=== PATIENT | male | born 1990 ===

== ENCOUNTER 2023-11-27 20:42 | Emergency (ER) | payer OTHER ==
[2023-11-27 20:54] VITALS: TEMP 98.2
[2023-11-27 20:59] LABS: Basophils # (A) 0.1 k/uL (0-0.2); Basophils % (A) 1 %; Eosinophils # (A) 0.4 k/uL (0-0.7); Eosinophils % (A) 4 %; HCT 43.7 % (39.0-53.0); HGB 14.6 gm/dL (13.0-17.5); Lymphocytes # (A) 2.9 k/uL (1.0-4.8); Lymphocytes % (A) 28 %; MCH 30.2 pg (25.0-35.0); MCHC 33.3 g/dL (31.0-37.0); MCV 90.6 fL (80.0-100.0); Mean Platelet Volume 7.2; Monocytes # (A) 0.7 k/uL (0-1.0); Monocytes % (A) 7 %; Neutrophils % (A) 58 %; Platelet Count 282 k/uL (150-450); RBC 4.82 m/uL (4.30-5.90); RDW 13.2 % (11.5-15.5); WBC 10.3 k/uL (3.8-10.6)
[2023-11-27 21:07] LABS: ALT 41 U/L (4-49); AST 38 U/L (17-59); African American GFR (CKD) >90 (>60 ml/min/1.73 sqM); Albumin 4.6 g/dL (3.5-5.0); Alkaline Phosphatase 61 U/L (38-126); Anion Gap 6 mmol/L; Blood Urea Nitrogen 10 mg/dL (9-20); Calcium 9.9 mg/dL (8.4-10.2); Carbon Dioxide 28 mmol/L (22-30); Chloride 103 mmol/L (98-107); Glucose 104 mg/dL (74-99); Magnesium 1.7 mg/dL (1.6-2.3); Non-African American GFR(CKD) >90 (>60 ml/min/1.73 sqM); Potassium 4.3 mmol/L (3.5-5.1); Sodium 137 mmol/L (137-145); Total Bilirubin 0.4 mg/dL (0.2-1.3); Total Protein 7.6 g/dL (6.3-8.2)
[2023-11-27 21:08] LABS: INR 0.9 (<1.2); Partial Thromboplastin Time 25.6 sec (22.0-30.0); Prothrombin Time 10.5 sec (10.0-12.5)
--- NOTE | 2023-11-27 21:13 | ED ---
Chest Pain HPI - General Source: patient Mode of arrival: ambulatory Limitations: no limitations <Paola Duvall - Last Filed: 11/27/23 21:12> - General Source: RN notes reviewed, old records reviewed, Caregiver - History of Present Illness MD Complaint: chest pain, other (Abdominal pain and reflux) -: week(s) Pain Location: epigastric Severity: moderate Severity scale (1-10): 4 Quality: sharp Consistency: intermittent Improves With: nothing Worsens With: nothing Anginal Symptoms: nausea Other Symptoms: palpitations Treatments Prior to Arrival: none <Bennie Loya - Last Filed: 12/03/23 19:02> - General Chief Complaint: Chest Pain Stated Complaint: Chest Pain Time Seen by Provider: 11/27/23 21:13 - History of Present Illness Initial Comments: 33-year-old male presenting with chief complaint of chest pain for the last 2 weeks. Pressure-like sensation. No radiation of pain. States that he came in today "because it runs in the family". (Paola Duvall) This is a 33-year-old male to ER for 2 weeks of chest pain anterior abdominal chest pain with nausea no vomiting. Patient states this is reflux-like pain thinks he has esophageal reflux and heartburn (Bennie Loya) - Related Data Previous Rx's Medication Instructions Recorded Famotidine [Pepcid] 20 mg PO BID #60 tablet 11/27/23 Allergies Allergy/AdvReac Type Severity Reaction Status Date / Time Penicillins Allergy Unknown Verified 11/27/23 20:45 Childhood Review of Systems ROS Other: All systems not noted in ROS Statement are negative. <Paola Duvall - Last Filed: 11/27/23 21:12> ROS Other: All systems not noted in ROS Statement are negative. <Bennie Loya - Last Filed: 12/03/23 19:02> ROS Statement: Those systems with pertinent positive or pertinent negative responses have been documented in the HPI. Past Medical History Past Medical History: No Reported History History of Any Multi-Drug Resistant Organisms: None Reported Past Surgical History: No Surgical Hx Reported Past Psychological History: No Psychological Hx Reported Smoking Status: Never smoker Past Alcohol Use History: None Reported Past Drug Use History: None Reported <Paola Duvall - Last Filed: 11/27/23 21:12> General Exam Limitations: no limitations <Paola Duvall - Last Filed: 11/27/23 21:12> General appearance: alert, in no apparent distress, anxious Head exam: Present: atraumatic, normocephalic, normal inspection Eye exam: Present: normal appearance, PERRL, EOMI. Absent: scleral icterus, conjunctival injection, periorbital swelling ENT exam: Present: normal exam, mucous membranes moist Neck exam: Present: normal inspection. Absent: tenderness, meningismus, lymphadenopathy Respiratory exam: Present: normal lung sounds bilaterally. Absent: respiratory distress, wheezes, rales, rhonchi, stridor Cardiovascular Exam: Present: regular rate, normal rhythm, normal heart sounds. Absent: systolic murmur, diastolic murmur, rubs, gallop, clicks GI/Abdominal exam: Present: soft, normal bowel sounds. Absent: distended, tenderness, guarding, rebound, rigid Extremities exam: Present: normal inspection, full ROM, normal capillary refill. Absent: tenderness, pedal edema, joint swelling, calf tenderness Back exam: Present: normal inspection Neurological exam: Present: alert, oriented X3, CN II-XII intact Psychiatric exam: Present: normal affect, normal mood Skin exam: Present: warm, dry, intact, normal color. Absent: rash <Bennie Loya - Last Filed: 12/03/23 19:02> - General Exam Comments Initial Comments: Visual Physical Exam Vital signs reviewed General: Well-appearing, nontoxic, no acute distress. Head: Normocephalic, atraumatic Eyes: PERRLA, EOMI ENT: Airway patent Chest: Nonlabored breathing Skin: No visual rash, normal skin tone Neuro: Alert and oriented 3 Musculoskeletal: No gross abnormalities (Paola Duvall) Course <Bennie Loya - Last Filed: 12/03/23 19:02> Vital Signs 11/27/23 11/28/23 20:43 01:55 Temperature 98.2 F Pulse Rate 95 76 Respiratory 20 16 Rate Blood Pressure 159/94 132/99 O2 Sat by Pulse 100 98 Oximetry - Reevaluation(s) Reevaluation #1: 11/27/23 23:53 Medical records reviewed (Bennie Loya) Reevaluation #2: 11/27/23 23:53 Patient symptoms unchanged, improving (Bennie Loya) Reevaluation #3: 11/27/23 23:53 Patient informed of results questions answered Studies Chest x-ray and CTA chest are negative for acute disease (Bennie Loya) Reevaluation #4: Was pt. sent in by a medical professional or institution (, LEDY, EDUCATIONAL SIGN LANGUAGE INTERPRETER, urgent care, hospital, or fci...) When possible be specific @ -no Did you speak to anyone other than the patient for history (EMS, parent, family, police, friend...)? What history was obtained from this source @ -no Did you review nursing and triage notes (agree or disagree)? Why? @ -agree Are old charts reviewed (outside hosp., previous admission, EMS record, old EKG, old radiological studies, urgent care reports/EKG's, fci records)? Report findings @ -yes Differential Diagnosis (chest pain, altered mental status, abdominal pain women, abdominal pain men, vaginal bleeding, weakness, fever, dyspnea, syncope, h eadache, dizziness, GI bleed, back pain, seizure, CVA, palpatations, mental health, musculoskeletal)? @ -prior EKG interpreted by me (3pts min.). @ -yes X-rays interpreted by me (1pt min.). @ -yes negative for acute disease CT interpreted by me (1pt min.). @ -n yes yes negative for acute disease U/S interpreted by me (1pt. min.). @ -no What testing was considered but not performed or refused? (CT, X-rays, U/S, labs)? Why? @ -none What meds were considered but not given or refused? Why? @ -none Did you discuss the management of the patient with other professionals (professionals i.e. LEDY Tate, EDUCATIONAL SIGN LANGUAGE INTERPRETER, lab, RT, psych nurse, social insurance administrator, occupational therapy manager, teacher, security flex officer, case assistant)? Give summary @ -no Was smoking cessation discussed for >3mins.? @ -no Was critical care preformed (if so, how long)? @ -no Were there social determinants of health that impacted care today? How? (Homelessness, low income, unemployed, alcoholism, drug addiction, transportation, low edu. Level, literacy, decrease access to med. care, [facility], rehab)? @ -none Was there de-escalation of care discussed even if they declined (Discuss DNR or withdrawal of care, Hospice)? DNR status @ -no What co-morbidities impacted this encounter? (DM, HTN, Smoking, COPD, CAD, Cancer, CVA, ARF, Chemo, Hep., AIDS, mental health diagnosis, sleep apnea, morbid obesity)? @ -none Was patient admitted / discharged? Hospital course, mention meds given and route, prescriptions, significant lab abnormalities, going to OR and other pertinent info. @ - 33 male with nonspecific chest pain. Patient will be discharged home, feels like it is gastritis and reflux disease and patient feels improved Discharge Undiagnosed new problem with uncertain prognosis? @ -no Drug Therapy requiring intensive monitoring for toxicity (Heparin, Nitro, Insulin, Cardizem)? @ -no Were any procedures done? @ -no Diagnosis/symptom? @ -Chest pain gastritis Acute, or Chronic, or Acute on Chronic? @ -Acute Uncomplicated (without systemic symptoms) or Complicated (systemic symptoms)? @ -Complicated Side effects of treatment? @ -no Exacerbation, Progression, or Severe Exacerbation? @ -exacerbation Poses a threat to life or bodily function? How? (Chest pain, USA, CT, pneumonia, PE, COPD, DKA, ARF, appy, cholecystitis, CVA, Diverticulitis, Homicidal, Suicidal, threat to staff... and all critical care pts) @ -yes with chest pain (Bennie Loya) Reevaluation #5: Differential Chest Pain: Stable Angina, Unstable Angina, STEMI, NSTEMI Aortic Dissection, Pneumothorax, Musculoskeletal, Esophageal Spasm GERD, Cholecystitis, Pancreatitis, Zoster, this is not meant to be an all-inclusive list. (Bennie Loya) Chest Pain [facility] <Paola Duvall - Last Filed: 11/27/23 21:12> <Bennie Loya - Last Filed: 12/03/23 19:02> - [facility] I performed the quick note portion of this visit, electronically signed Paola Duvall PA-C (Paola Duvall) 33 male with nonspecific chest pain. Patient will be discharged home, feels like it is gastritis and reflux disease and patient feels improved (Bennie Loya) Disposition <Paola Duvall - Last Filed: 11/27/23 21:12> Is patient prescribed a controlled substance at d/c from ED?: No Time of Disposition: 23:50 <Bennie Loya - Last Filed: 12/03/23 19:02> Clinical Impression: Atypical chest pain, Chest pain, Gastroesophageal reflux disease Disposition: HOME SELF-CARE Condition: Good Instructions (If sedation given, give patient instructions): Chest Pain (ED), Gastritis (ED) Prescriptions: Famotidine [Pepcid] 20 mg PO BID #60 tablet Referrals: None,Stated [Primary Care Provider] - 1-2 days
--- NOTE | 2023-11-27 21:22 | XR ---
EXAMINATION: XR chest 2V: 11/27/2023 9:03 PM CLINICAL INDICATION: Chest Pain TECHNIQUE: PA and lateral views COMPARISON: None FINDINGS/IMPRESSION: There is a thin crescent of gas (arrow on both views) underneath the left hemidiaphragm on both the f rontal and lateral projections. There is a large rounded hyperdensity which appears to correlate with the gastric fundus (small arrowheads on the frontal view). Though the thin crescent of gas most like ly to represent atypical presentation of gastric air - would recommend exclusion of left pneumoperito neum with bilateral decubitus X-ray. The lungs are clear and the pleural spaces are negative. The cardiac silhouette is not enlarged. The skeletal structures are negative for acute findings.
--- NOTE | 2023-11-27 23:53 | XR ---
EXAM: XR Abdomen, 2 Views CLINICAL HISTORY: ITS.REASON XR Reason: r/o pneumoperitoneum TECHNIQUE: Frontal view of the abdomen/pelvis with upright view of the abdomen. COMPARISON: No relevant prior studies available. FINDINGS: Intraperitoneal space: Free air in the abdomen and outlines the RIGHT lateral border of the liver. The need for CT scan should be determined clinically. Gastrointestinal tract: Nonobstructed bowel gas pattern. Bones/joints: Unremarkable. No acute fracture. IMPRESSION: Free air in the abdomen outlines the RIGHT lateral border of the liver. The need for CT scan should be determined clinically. <MYCVCSECTION> Communications: 11/27/23 23:56 Verify Receipt Verified receipt with LORNA Vanegas giving report to Dr. Loya on 11/27 23:56 (-05:00)
[2023-11-28] MEDS: MAG HYDROX/AL HYDROX/SIMETH 30 ML, HYOSCYAMINE ELIXIR 10 ML, LIDOCAINE VISCOUS 2% 10 ML PO STA (00:08)
[2023-11-28] MEDS: SODIUM CHLORIDE 0.9% 1,000 ML IV STA (00:31)
[2023-11-28 02:00] VITALS: BP 132/99; PULSE 76; RESP 16
--- NOTE | 2023-11-28 02:00 | CT ---
EXAM: CT Abdomen and Pelvis With Intravenous Contrast CLINICAL HISTORY: ITS.REASON CT Reason: pain. Questionable pneumoperitoneum TECHNIQUE: Axial computed tomography images of the abdomen and pelvis with intravenous contrast. CTDI is 16.8 mGy and DLP is 831.1 mGy-cm. This CT exam was performed using one or more of the following dose reduction techniques: automated exposure control, adjustment of the mA and/or kV according to patient size, and/or use of iterative reconstruction technique. Coronal and sagittal reconstructions are performed. 448 images COMPARISON: Abdominal radiographs from yesterday. FINDINGS: Lung bases: Unremarkable. No mass. No consolidation. ABDOMEN: Liver: Unremarkable. No mass. Gallbladder and bile ducts: Unremarkable. No calcified stones. No ductal dilation. Pancreas: Unremarkable. No mass. No ductal dilation. Spleen: Unremarkable. No splenomegaly. Adrenals: Unremarkable. No mass. Kidneys and ureters: Unremarkable. No solid mass. No hydronephrosis. Stomach and bowel: Unremarkable. No obstruction. No mucosal thickening. PELVIS: Appendix: Normal appendix. Bladder: Unremarkable. No mass. Reproductive: Unremarkable as visualized. ABDOMEN and PELVIS: Intraperitoneal space: Unremarkable. No free air. No significant fluid collection. Bones/joints: Moderate thoracolumbar scoliosis convexed to the right. Soft tissues: Unremarkable. Vasculature: Unremarkable. No abdominal aortic aneurysm. Lymph nodes: Unremarkable. No enlarged lymph nodes. IMPRESSION: No acute findings in the abdomen or pelvis.
== END 2023-11-28 02:24 | disposition home or self-care (01) ==
LOC: EC 20:42
DX: R07.89 Other chest pain (principal); K21.9 Gastro-esophageal reflux disease without esophagitis; Z88.0 Allergy status to penicillin
CPT/HCPCS: 36415; 71046; 74021; 74177; 80053; 83735; 84484; 85025; 85610; 85730; 93005; 96360; 99285

== ENCOUNTER 2024-04-02 19:57 | Emergency (ER) | payer OTHER ==
[2024-04-02 20:02] VITALS: BP 154/115; PULSE 80; RESP 18; TEMP 98
--- NOTE | 2024-04-02 20:25 | ED ---
General Adult HPI - General Chief complaint: ENT Stated complaint: Poss food lodged in throat,Vomiting Time Seen by Provider: 04/02/24 20:04 Source: patient, RN notes reviewed, old records reviewed Mode of arrival: ambulatory Limitations: no limitations - History of Present Illness Initial comments: 33-year-old male presents with suspected food impaction in the esophagus. Patient was eating steak and acutely was unable to swallow. He had no difficulty breathing. He had several episodes of vomiting but was unable to vomit up any food. He has history of gastric reflux and does take daily medication. He has not had previous issues related to this. - Related Data Previous Rx's Medication Instructions Recorded Famotidine [Pepcid] 20 mg PO BID #60 tablet 11/27/23 Allergies Allergy/AdvReac Type Severity Reaction Status Date / Time Penicillins Allergy Unknown Verified 11/27/23 20:45 Childhood Review of Systems ROS Statement: Those systems with pertinent positive or pertinent negative responses have been documented in the HPI. ROS Other: All systems not noted in ROS Statement are negative. Past Medical History Past Medical History: No Reported History History of Any Multi-Drug Resistant Organisms: None Reported Past Surgical History: No Surgical Hx Reported Past Psychological History: No Psychological Hx Reported Smoking Status: Never smoker Past Alcohol Use History: None Reported Past Drug Use History: None Reported General Exam Limitations: no limitations General appearance: alert, in no apparent distress Head exam: Present: atraumatic, normocephalic Eye exam: Present: normal appearance, PERRL ENT exam: Present: normal oropharynx Neck exam: Present: normal inspection. Absent: tenderness, meningismus Respiratory exam: Present: normal lung sounds bilaterally. Absent: respiratory distress, wheezes, stridor Cardiovascular Exam: Present: regular rate, normal rhythm GI/Abdominal exam: Present: soft. Absent: distended, tenderness, guarding Neurological exam: Present: alert, oriented X3 Psychiatric exam: Present: anxious Skin exam: Present: diaphoretic Course Vital Signs 04/02/24 20:00 Temperature 98 F Pulse Rate 80 Respiratory 18 Rate Blood Pressure 154/115 O2 Sat by Pulse 98 Oximetry Medical Decision Making - Medical Decision Making Was pt. sent in by a medical professional or institution (, PA, CLINICAL INFORMATICS DIRECTOR, urgent care, hospital, or fci...) When possible be specific @ -No Did you speak to anyone other than the patient for history (EMS, parent, family, police, friend...)? What history was obtained from this source @ -No Did you review nursing and triage notes (agree or disagree)? Why? @ -I reviewed and agree with nursing and triage notes Were old charts reviewed (outside hosp., previous admission, EMS record, old EKG, old radiological studies, urgent care reports/EKG's, fci records)? Report findings @ -No old charts were reviewed Differential Diagnosis esophageal foreign body, impacted steak EKG interpreted by me (3pts min.). @ -As above X-rays interpreted by me (1pt min.). @ -None done CT interpreted by me (1pt min.). @ -None done U/S interpreted by me (1pt. min.). @ -None done What testing was considered but not performed or refused? (CT, X-rays, U/S, labs)? Why? @ -None What meds were considered but not given or refused? Why? @ -None Did you discuss the management of the patient with other professionals (professionals i.e. , PA, CLINICAL INFORMATICS DIRECTOR, lab, RT, psych nurse, social work administrator, merchandising specialist, teacher, senior administrative services officer, case management social worker)? Give summary @ -No Was smoking cessation discussed for >3mins.? @ -No Was critical care preformed (if so, how long)? @ -No Were there social determinants of health that impacted care today? How? (Homelessness, low income, unemployed, alcoholism, drug addiction, transportation, low edu. Level, literacy, decrease access to med. care, detention, rehab)? @ -No Was there de-escalation of care discussed even if they declined (Discuss DNR or withdrawal of care, Hospice)? DNR status @ -No What co-morbidities impacted this encounter? (DM, HTN, Smoking, COPD, CAD, Cancer, CVA, ARF, Chemo, Hep., AIDS, mental health diagnosis, sleep apnea, morbid obesity)? @ -[Gastric reflux Was patient admitted / discharged? Hospital course, mention meds given and route, prescriptions, significant lab abnormalities, going to OR and other pertinent info. @ -33-year-old male presenting for evaluation of suspected food impaction. Patient is acutely vomiting when attempting to drink anything. He takes small sips of carbonated beverage and ultimately is able to vomit up the steak bolus. He is able to drink after this. He will continue his proton pump inhibitor and follow with gastroenterology for further evaluation. He will be reevaluated by oncoming physician to ensure he is able to drink normally. Undiagnosed new problem with uncertain prognosis? @ -No Drug Therapy requiring intensive monitoring for toxicity (Heparin, Nitro, Insulin, Cardizem)? @ -No Were any procedures done? @ -No Diagnosis/symptom? @ -Esophageal food impaction Acute, or Chronic, or Acute on Chronic? @ -Default Uncomplicated (without systemic symptoms) or Complicated (systemic symptoms)? @ -Default Side effects of treatment? @ -No Exacerbation, Progression, or Severe Exacerbation? @ -No Poses a threat to life or bodily function? How? (Chest pain, [place], [place], pneumonia, PE, COPD, DKA, ARF, appy, cholecystitis, CVA, Diverticulitis, Homicidal, Suicidal, threat to staff... and all critical care pts) @ -No Disposition Clinical Impression: Esophageal obstruction due to food impaction Disposition: HOME SELF-CARE Condition: Good Instructions (If sedation given, give patient instructions): Esophageal Foreign Body (ED) Is patient prescribed a controlled substance at d/c from ED?: No Referrals: None,Stated [Primary Care Provider] - 1-2 days Monique Garner MD [STAFF PHYSICIAN] - 1-2 days
[2024-04-02] MEDS: KETOROLAC 15 MG/ML 1 ML VIAL IM STA (20:39)
[2024-04-02] MEDS: GLUCAGON 1 MG/ML VIAL IM STA (21:07)
[2024-04-02] MEDS: ONDANSETRON ODT 4 MG TAB PO STA (21:08)
[2024-04-02] MEDS: HYDROmorphone 0.5 MG/0.5 ML SYRINGE IM STA (21:13)
== END 2024-04-02 21:43 | disposition home or self-care (01) ==
LOC: EC 19:57
DX: K22.2 Esophageal obstruction (principal); Z88.0 Allergy status to penicillin
CPT/HCPCS: 99284; 96372 ×2; J1885; J1170

== ENCOUNTER 2024-11-02 01:43 | Observation (INO) | payer OTHER ==
[2024-11-02] MEDS: ACETAMINOPHEN TAB 500 MG TAB PO STA (02:20)
[2024-11-02] MEDS: IBUPROFEN 600 MG TAB PO STA (02:21)
[2024-11-02] MEDS: SODIUM CHLORIDE 0.9% 1,000 ML IV ONE ×2 (02:21→02:58)
[2024-11-02 02:38] LABS: Basophils # (A) 0.1 k/uL (0-0.2); Basophils % (A) 0 %; Eosinophils # (A) 0.3 k/uL (0-0.7); Eosinophils % (A) 1 %; HCT 40.1 % (39.0-53.0); Lymphocytes # (A) 1.1 k/uL (1.0-4.8); Lymphocytes % (A) 5 %; MCH 31.1 pg (25.0-35.0); Mean Platelet Volume 8.3; Monocytes # (A) 0.6 k/uL (0-1.0); Monocytes % (A) 3 %; Neutrophils # (A) 21.6 k/uL (1.3-7.7); Neutrophils % (A) 90 %; Platelet Count 317 k/uL (150-450); RDW 13.2 % (11.5-15.5); WBC 23.8 k/uL (3.8-10.6)
--- NOTE | 2024-11-02 02:49 | ED ---
General Adult HPI - General Chief complaint: Abdominal Pain Stated complaint: Left flank pain Time Seen by Provider: 11/02/24 01:58 Source: patient, RN notes reviewed Mode of arrival: EMS Limitations: no limitations - History of Present Illness Initial comments: 34-year old male presents to the emergency department for evaluation of left- sided rib pain. He states that it started yesterday morning when he woke up. He notes that nothing improves the pain. He does admit to coughing for "quite a while." He denies any known fever at home but is febrile in the ED. He denies any nausea, vomiting, urinary symptoms. Past medical history includes GERD. - Related Data Previous Rx's Medication Instructions Recorded Famotidine [Pepcid] 20 mg PO BID #60 tablet 11/27/23 Allergies Allergy/AdvReac Type Severity Reaction Status Date / Time Penicillins Allergy Unknown Verified 11/02/24 01:45 Childhood Review of Systems ROS Statement: Those systems with pertinent positive or pertinent negative responses have been documented in the HPI. ROS Other: All systems not noted in ROS Statement are negative. Past Medical History Past Medical History: No Reported History History of Any Multi-Drug Resistant Organisms: None Reported Past Surgical History: No Surgical Hx Reported Additional Past Surgical History / Comment(s): cyst Past Psychological History: No Psychological Hx Reported Smoking Status: Never smoker Past Alcohol Use History: None Reported Past Drug Use History: None Reported General Exam Limitations: no limitations General appearance: alert, in no apparent distress Head exam: Present: atraumatic, normocephalic, normal inspection Eye exam: Present: normal appearance, PERRL, EOMI. Absent: scleral icterus, conjunctival injection, periorbital swelling ENT exam: Present: normal exam, mucous membranes moist Neck exam: Present: normal inspection. Absent: tenderness, meningismus, lymphadenopathy Respiratory exam: Present: rhonchi. Absent: respiratory distress, wheezes, rales, stridor Cardiovascular Exam: Present: regular rate, normal rhythm, normal heart sounds. Absent: systolic murmur, diastolic murmur, rubs, gallop, clicks GI/Abdominal exam: Present: soft, normal bowel sounds. Absent: distended, tenderness, guarding, rebound, rigid Extremities exam: Present: normal inspection, full ROM, normal capillary refill. Absent: tenderness, pedal edema, joint swelling, calf tenderness Back exam: Present: normal inspection Neurological exam: Present: alert, oriented X3 Psychiatric exam: Present: normal affect, normal mood Skin exam: Present: warm, dry, intact, normal color. Absent: rash Course Vital Signs 11/02/24 11/02/24 01:45 03:01 Temperature 104.1 F H 99.9 F H Pulse Rate 124 H 104 H Respiratory 16 18 Rate Blood Pressure 136/98 134/67 O2 Sat by Pulse 99 99 Oximetry Medical Decision Making - Medical Decision Making Was pt. sent in by a medical professional or institution (, PA, BENZENE WORKER, urgent care, hospital, or assisted...) When possible be specific @ -No Did you speak to anyone other than the patient for history (EMS, parent, family, police, friend...)? What history was obtained from this source @ -No Did you review nursing and triage notes (agree or disagree)? Why? @ -I reviewed and agree with nursing and triage notes Were old charts reviewed (outside hosp., previous admission, EMS record, old EKG, old radiological studies, urgent care reports/EKG's, assisted records)? Report findings @ -No old charts were reviewed Differential Diagnosis (chest pain, altered mental status, abdominal pain women, abdominal pain men, vaginal bleeding, weakness, fever, dyspnea, syncope, headache, dizziness, GI bleed, back pain, seizure, CVA, palpatations, mental health, musculoskeletal)? @ -Differential Fever: Pneumonia, viral URI, endocarditis, myocarditis, pericarditis, otitis, sinusitis, peritonsillar Abscess, retropharyngeal Abscess, epiglottitis, peritonitis, appendicitis, Isabel cystitis, diverticulitis, hepatitis, colitis, UTI, PID, TOA, pyelonephritis, prostatitis, epididymitis, meningitis, encephalitis, pulmonary embolism, CVA, thyroid storm, pancreatitis, adrenal crisis, cavernous sinus thrombosis, this is not meant to be an all-inclusive list. EKG interpreted by me (3pts min.). @ -As above X-rays interpreted by me (1pt min.). @ -Chest x-ray shows left lower lobe infiltrate CT interpreted by me (1pt min.). @ -CT abdomen pelvis shows left lower lobe consolidation, no abdominal acute process U/S interpreted by me (1pt. min.). @ -None done What testing was considered but not performed or refused? (CT, X-rays, U/S, labs)? Why? @ -None What meds were considered but not given or refused? Why? @ -None Did you discuss the management of the patient with other professionals (professionals i.e. , PA, BENZENE WORKER, lab, RT, psych nurse, hospital social worker, english drawer, teacher, information management officer, pillowcase folder)? Give summary @ -Management discussed with [facility] by my attending, Dr. Sal Was smoking cessation discussed for >3mins.? @ -No Was critical care preformed (if so, how long)? @ -No Were there social determinants of health that impacted care today? How? (Homelessness, low income, unemployed, alcoholism, drug addiction, transportat ion, low edu. Level, literacy, decrease access to med. care, intermediate, rehab)? @ -No Was there de-escalation of care discussed even if they declined (Discuss DNR or withdrawal of care, Hospice)? DNR status @ -No What co-morbidities impacted this encounter? (DM, HTN, Smoking, COPD, CAD, Cancer, CVA, ARF, Chemo, Hep., AIDS, mental health diagnosis, sleep apnea, morbid obesity)? @ -None Was patient admitted / discharged? Hospital course, mention meds given and route, prescriptions, significant lab abnormalities, going to OR and other pertinent info. @ -Admitted. Patient presented to emergency department for evaluation of left- sided chest wall pain. Patient found to be febrile and tachycardic upon initial evaluation. Patient was provided Tylenol and Motrin in the ED. He also received 2 L of normal saline. Laboratory studies were obtained significant for leukocytosis at 23.8; CMP shows sodium 134 potassium 4.1, lipase of 1029. Patient was negative for COVID, influenza, RSV. Chest x-ray was obtained and a CT abdomen pelvis was also obtained. Upon review of these studies, findings s uspicious for a left lower lobe consolidation. Source of sepsis identified at 0330 and Rocephin and azithromycin were ordered. Patient was started on maintenance fluids. He is being admitted to the hospital for IV antibiotic treatment of pneumonia. He is understanding and agreeable with this plan. Patient stable at time of discharge. Case discussed with Dr. Sal. Undiagnosed new problem with uncertain prognosis? @ -No Drug Therapy requiring intensive monitoring for toxicity (Heparin, Nitro, Insulin, Cardizem)? @ -No Were any procedures done? @ -No Diagnosis/symptom? @ -Pneumonia Acute, or Chronic, or Acute on Chronic? @ -Acute Uncomplicated (without systemic symptoms) or Complicated (systemic symptoms)? @ -Complicated Side effects of treatment? @ -No Exacerbation, Progression, or Severe Exacerbation? @ -No Poses a threat to life or bodily function? How? (Chest pain, [place], [place], pneumonia, PE, COPD, DKA, ARF, appy, cholecystitis, CVA, Diverticulitis, Homicidal, Suicidal, threat to staff... and all critical care pts) @ -Pneumonia - Lab Data Result diagrams: 11/02/24 02:18 11/02/24 02:18 Lab Results 11/02/24 11/02/24 11/02/24 Range/Units 02:18 02:18 02:18 WBC 23.8 H (3.8-10.6) k/uL RBC 4.50 (4.30-5.90) m/uL Hgb 14.0 (13.0-17.5) gm/dL Hct 40.1 (39.0-53.0) % MCV 89.0 (80.0-100.0) fL MCH 31.1 (25.0-35.0) pg MCHC 35.0 (31.0-37.0) g/dL RDW 13.2 (11.5-15.5) % Plt Count 317 (150-450) k/uL MPV 8.3 Neutrophils % 90 % Lymphocytes % 5 % Monocytes % 3 % Eosinophils % 1 % Basophils % 0 % Neutrophils # 21.6 H (1.3-7.7) k/uL Lymphocytes # 1.1 (1.0-4.8) k/uL Monocytes # 0.6 (0-1.0) k/uL Eosinophils # 0.3 (0-0.7) k/uL Basophils # 0.1 (0-0.2) k/uL Sodium 134 L (137-145) mmol/L Potassium 4.1 (3.5-5.1) mmol/L Chloride 99 (98-107) mmol/L Carbon Dioxide 23 (22-30) mmol/L Anion Gap 12 mmol/L BUN 9 (9-20) mg/dL Creatinine 0.77 (0.66-1.25) mg/dL Est GFR (CKD-EPI)AfAm >90 (>60 ml/min/1.73 sqM) Est GFR (CKD-EPI)NonAf >90 (>60 ml/min/1.73 sqM) Glucose 124 H (74-99) mg/dL Plasma Lactic Acid Benjie 1.7 (0.7-2.0) mmol/L Calcium 9.6 (8.4-10.2) mg/dL Total Bilirubin 0.5 (0.2-1.3) mg/dL AST 18 (17-59) U/L ALT 23 (4-49) U/L Alkaline Phosphatase 69 (38-126) U/L Total Protein 7.3 (6.3-8.2) g/dL Albumin 4.3 (3.5-5.0) g/dL Lipase (23-300) U/L Influenza Type A (PCR) (Not Detectd) Influenza Type B (PCR) (Not Detectd) RSV (PCR) (Not Detectd) SARS-CoV-2 (PCR) (Not Detectd) 11/02/24 11/02/24 Range/Units 02:18 02:55 WBC (3.8-10.6) k/uL RBC (4.30-5.90) m/uL Hgb (13.0-17.5) gm/dL Hct (39.0-53.0) % MCV (80.0-100.0) fL MCH (25.0-35.0) pg MCHC (31.0-37.0) g/dL RDW (11.5-15.5) % Plt Count (150-450) k/uL MPV Neutrophils % % Lymphocytes % % Monocytes % % Eosinophils % % Basophils % % Neutrophils # (1.3-7.7) k/uL Lymphocytes # (1.0-4.8) k/uL Monocytes # (0-1.0) k/uL Eosinophils # (0-0.7) k/uL Basophils # (0-0.2) k/uL Sodium (137-145) mmol/L Potassium (3.5-5.1) mmol/L Chloride (98-107) mmol/L Carbon Dioxide (22-30) mmol/L Anion Gap mmol/L BUN (9-20) mg/dL Creatinine (0.66-1.25) mg/dL Est GFR (CKD-EPI)AfAm (>60 ml/min/1.73 sqM) Est GFR (CKD-EPI)NonAf (>60 ml/min/1.73 sqM) Glucose (74-99) mg/dL Plasma Lactic Acid Benjie (0.7-2.0) mmol/L Calcium (8.4-10.2) mg/dL Total Bilirubin (0.2-1.3) mg/dL AST (17-59) U/L ALT (4-49) U/L Alkaline Phosphatase (38-126) U/L Total Protein (6.3-8.2) g/dL Albumin (3.5-5.0) g/dL Lipase 1029 H (23-300) U/L Influenza Type A (PCR) Not Detected (Not Detectd) Influenza Type B (PCR) Not Detected (Not Detectd) RSV (PCR) Not Detected (Not Detectd) SARS-CoV-2 (PCR) Not Detected (Not Detectd) Disposition Clinical Impression: Pneumonia, Sepsis Disposition: [facility] Condition: Stable Is patient prescribed a controlled substance at d/c from ED?: No Referrals: Robbie Jensen [Primary Care Provider] - 1-2 days
[2024-11-02 02:55] LABS: ALT 23 U/L (4-49); AST 18 U/L (17-59); African American GFR (CKD) >90 (>60 ml/min/1.73 sqM); Albumin 4.3 g/dL (3.5-5.0); Alkaline Phosphatase 69 U/L (38-126); Anion Gap 12 mmol/L; Blood Urea Nitrogen 9 mg/dL (9-20); Calcium 9.6 mg/dL (8.4-10.2); Carbon Dioxide 23 mmol/L (22-30); Chloride 99 mmol/L (98-107); Glucose 124 mg/dL (74-99); Non-African American GFR(CKD) >90 (>60 ml/min/1.73 sqM); Potassium 4.1 mmol/L (3.5-5.1); Sodium 134 mmol/L (137-145); Total Bilirubin 0.5 mg/dL (0.2-1.3); Total Protein 7.3 g/dL (6.3-8.2)
[2024-11-02 03:19] LABS: Influenza A Not Detected (Not Detectd); Influenza B Not Detected (Not Detectd); RSV Not Detected (Not Detectd)
[2024-11-02] MEDS ORDERED: PNEUMONIA PROTOCOL UTILIZED 1 EACH MISC PO PRN (03:40)
--- NOTE | 2024-11-02 03:48 | XR ---
EXAM: XR Chest, 2 Views CLINICAL HISTORY: left lateral pain, cough TECHNIQUE: Frontal and lateral views of the chest. COMPARISON: 11/27/23 FINDINGS: Lungs: Unremarkable. No consolidation. Pleural space: Unremarkable. Mediastinum: Unremarkable. Normal mediastinal contour. Bones/joints: No acute findings. No rib fracture IMPRESSION: No acute findings.
[2024-11-02] MEDS ORDERED: HYDROmorphone 0.5 MG/0.5 ML SYRINGE IVP PRN (03:59)
--- NOTE | 2024-11-02 04:00 | CT ---
EXAM: CT Abdomen and Pelvis With Intravenous Contrast CLINICAL HISTORY: left sided pain TECHNIQUE: Axial computed tomography images of the abdomen and pelvis with intravenous contrast. CTDI is 13.9 mGy and DLP is 688 mGy-cm. This CT exam was performed using one or more of the following dose reduction techniques: automated exposure control, adjustment of the mA and/or kV according to patient size, and/or use of iterative reconstruction technique. Coronal and sagittal reconstructions are performed. 669 images COMPARISON: 11/28/2023. FINDINGS: Lung bases: Small peripheral consolidation of left lower lobe indicate pneumonia. ABDOMEN: Liver: Unremarkable. No mass. Gallbladder and bile ducts: Unremarkable. No calcified stones. No ductal dilation. Pancreas: Unremarkable. No mass. No ductal dilation. Spleen: Unremarkable. No splenomegaly. Adrenals: Unremarkable. No mass. Kidneys and ureters: Unremarkable. No solid mass. No hydronephrosis. Stomach and bowel: Unremarkable. No obstruction. No mucosal thickening. PELVIS: Appendix: Normal appendix. Bladder: Unremarkable. No mass. Reproductive: Unremarkable as visualized. ABDOMEN and PELVIS: Intraperitoneal space: Unremarkable. No free air. No significant fluid collection. Bones/joints: Moderate upper lumbar scoliosis convexed to the right. Soft tissues: Unremarkable. Vasculature: Unremarkable. No abdominal aortic aneurysm. Lymph nodes: Unremarkable. No enlarged lymph nodes. IMPRESSION: 1. Small peripheral consolidation of left lower lobe indicate pneumonia. Follow-up to resolution is recommended to rule out potential underlying neoplastic etiologies. 2. No acute findings in the abdomen or pelvis.
[2024-11-02] MEDS: AZITHROMYCIN 500 MG in SODIUM CHLORIDE 0.9% 250 ML IVPB STA (04:41)
[2024-11-02 04:56] LABS: Appearance,Urine Clear (Clear); Bilirubin,Urine Negative (Negative); Blood,Urine Negative (Negative); Color,Urine Colorless; Glucose,Urine (UA) Negative (Negative); Ketones,Urine Negative (Negative); Leukocyte Esterase,Urine Negative (Negative); Nitrite,Urine Negative (Negative); Protein,Urine Negative (Negative); Specific Gravity,Urine 1.011 (1.001-1.035); Urobilinogen,Urine <2.0 mg/dL (<2.0)
[2024-11-02 10:57] LABS: C Reactive Protein 4.9 mg/dL (<1.0)
--- NOTE | 2024-11-02 13:21 | P.HPIM ---
History of Present Illness H&P Date: 11/02/24 History of present illness; patient is a 34-year-old gentleman who came to the ER because of left-sided chest pain. Patient stated that he was all right yesterday when he started noticing left-sided chest pain which was sharp, nonradiating, associate with shortness of breath, no aggravating or relieving factors associated with this chest pain. Patient was complaining of cough for the last few days. Patient any fevers at home. There is no complaint of rigors or chills. Patient denies any nausea or vomiting. There was no clear orthopnea or PND. Because of this chest pain, patient came to the ER Initial lab work done in the ER showed WBC 23.8, hemoglobin 14, platelet 317, sodium 134, potassium 4.1, BUN 9, creatinine 0.77, glucose 124, lipase 1029 UA negative for infection Influenza A not detected Influenza B not detected RSV not detected COVID-19 not detected Chest x-ray done in the ER showed no acute findings CT abdominal pelvis done showed consolidation of left lower lobe indicative of pneumonia Patient admitted to internal medicine service REVIEW OF SYSTEMS: CONSTITUTIONAL: No fever, no malaise, no fatigue. HEENT: No recent visual problems or hearing problems. Denied any sore throat. CARDIOVASCULAR: As mentioned above PULMONARY: As mentioned above GASTROINTESTINAL: No diarrhea, no nausea, no vomiting, no abdominal pain. NEUROLOGICAL: No headaches, no weakness, no numbness. HEMATOLOGICAL: Denies any bleeding or petechiae. GENITOURINARY: Denies any burning micturition, frequency, or urgency. MUSCULOSKELETAL/RHEUMATOLOGICAL: Denies any joint pain, swelling, or any muscle pain. ENDOCRINE: Denies any polyuria or polydipsia. The rest of the 14-point review of systems is negative. PHYSICAL EXAMINATION: GENERAL: The patient is alert and oriented x3, not in any acute distress. Well developed, well nourished. HEENT: Pupils are round and equally reacting to light. EOMI. No scleral icterus. No conjunctival pallor. Normocephalic, atraumatic. No pharyngeal erythema. No thyromegaly. CARDIOVASCULAR: S1 and S2 present. No murmurs, rubs, or gallops. PULMONARY: Diminished breath sounds at left lung base , no wheezing or crackles. ABDOMEN: Soft, nontender, nondistended, normoactive bowel sounds. No palpable organomegaly. MUSCULOSKELETAL: No joint swelling or deformity. EXTREMITIES: No cyanosis, clubbing, or pedal edema. NEUROLOGICAL: Gross neurological examination did not reveal any focal deficits. SKIN: No rashes. Assessment and plan Sepsis Bacterial pneumonia Left-sided chest pain GERD Monitor vital signs Monitor CBC Monitor CMP Continue telemetry monitoring Ordered blood cultures Ordered sputum culture Ordered Legionella antigen Ordered CRP, ESR, Pro-Bear Ordered IV Rocephin azithromycin Ordered IV fluids Ordered antipyretics Consult ID Labs and medication were reviewed.. Continue same treatment. Continue with symptomatic treatment. Resume home medication. Monitor labs and vitals. DVT and GI prophylaxis. Further recommendations as per clinical course of the patient Dictation was produced using [employer] dictation software. please excuse any grammatical, word or spelling errors. Past Medical History Past Medical History: No Reported History History of Any Multi-Drug Resistant Organisms: None Reported Past Surgical History: No Surgical Hx Reported Additional Past Surgical History / Comment(s): cyst Past Psychological History: No Psychological Hx Reported Smoking Status: Former smoker Past Alcohol Use History: None Reported Past Drug Use History: None Reported Medications and Allergies Home Medications Medication Instructions Recorded Confirmed Type Omeprazole 20 mg PO DAILY 11/02/24 11/02/24 History Allergies Allergy/AdvReac Type Severity Reaction Status Date / Time Penicillins Allergy Anaphylaxis Verified 11/02/24 12:31 Physical Exam Vitals: Vital Signs Temp Pulse Pulse Resp BP BP Pulse Ox 11/02/24 07:58 97.9 F 74 18 107/67 97 11/02/24 06:14 85 18 107/67 96 11/02/24 04:02 99 18 114/76 97 11/02/24 03:01 99.9 F H 104 H 18 134/67 99 11/02/24 01:45 104.1 F H 124 H 16 136/98 99 Intake and Output 11/01/24 11/02/24 11/02/24 22:59 06:59 14:59 Other: Weight 68.039 kg 68.039 kg Results CBC & Chem 7: 11/02/24 02:18 11/02/24 02:18 Labs: Abnormal Lab Results - Last 24 Hours (Table) 11/02/24 11/02/24 11/02/24 Range/Units 02:18 02:18 02:55 WBC 23.8 H (3.8-10.6) k/uL Neutrophils # 21.6 H (1.3-7.7) k/uL Sodium 134 L (137-145) mmol/L Glucose 124 H (74-99) mg/dL Lipase 1029 H (23-300) U/L Thrombosis Risk Factor Assmnt - Choose All That Apply Any of the Below Risk Factors Present?: No Other Risk Factors: No Thrombosis Risk Factor Assessment Level: Very Low Risk
[2024-11-02] MEDS: ACETAMINOPHEN TAB 325 MG TAB PO PRN (13:41)
[2024-11-02] MEDS: PANTOPRAZOLE 40 MG TABLET PO SCH (18:01)
[2024-11-02] MEDS: KETOROLAC 15 MG/ML 1 ML VIAL IVP PRN (18:48)
--- NOTE | 2024-11-03 07:23 | XR ---
Chest, 2 view. HISTORY: Cough. COMPARISON: TECHNIQUE: PA and lateral views the chest are obtained. FINDINGS: There is no airspace consolidation. There is mild stable interstitial opacity in the left lung base reflecting mild interstitial scarring or fibrosis. There is no pleural effusion or pneumothorax. The heart, pulmonary vasculature, mediastinum and denise appear normal. The osseous structures are intact. IMPRESSION: 1. No acute cardiopulmonary disease and no interval change 2. mild chronic interstitial changes in the left lung base [facility], , 11/03/2024 7:20 AM
[2024-11-03] MEDS: AZITHROMYCIN 500 MG TAB PO SCH (08:46)
--- NOTE | 2024-11-03 08:58 | P.CONS ---
History of Present Illness - Reason for Consult Consult date: 11/02/24 Sepsis, pneumonia Requesting physician: Adam Mosqueda - Chief Complaint Left-sided chest pain and cough x days - History of Present Illness Patient is a 34-year-old male with no significant past medical history presenting to the hospital for evaluation of left-sided chest pain patient said he woke up in the morning with the pain pain is mostly sharp moderate to severe intensity and worse with taking a deep breath patient also has been coughing a lot over the last few days and is bringing up some yellow sputum no hemoptysis patient denies having any headache or URI symptoms no nausea vomiting no abdominal pain or diarrhea on presentation to the hospital he did have a temperature of 104.1 F patient was not tachycardic hypotensive or hypoxic and no need for supplemental oxygen. Patient did have a white count of 23.8 with a left shift creatinine 0.77 electrolytes are normal liver isms are normal UA has been negative influenza RSV COVID testing was negative blood and sputum culture currently pending patient did have a chest x-ray which did shows no acute findings subsequently did have a CT of abdominal pelvis left lower lobe consolidation suggestive of pneumonia no acute findings in abdominal pelvis patient was started on Rocephin and Zithromax infectious disease was consulted for further management of antibiotic therapy Review of Systems Positive point and negatives has been mentioned in the HPI, complete review of systems was performed and all other systems are negative Past Medical History Past Medical History: No Reported History History of Any Multi-Drug Resistant Organisms: None Reported Past Surgical History: No Surgical Hx Reported Additional Past Surgical History / Comment(s): cyst Past Psychological History: No Psychological Hx Reported Smoking Status: Former smoker Past Alcohol Use History: None Reported Past Drug Use History: None Reported Medications and Allergies Home Medications Medication Instructions Recorded Confirmed Type Omeprazole 20 mg PO DAILY 11/02/24 11/02/24 History Allergies Allergy/AdvReac Type Severity Reaction Status Date / Time Penicillins Allergy Anaphylaxis Verified 11/02/24 12:31 Physical Exam Vitals: Vital Signs Temp Pulse Pulse Resp BP BP Pulse Ox 11/02/24 07:58 97.9 F 74 18 107/67 97 11/02/24 06:14 85 18 107/67 96 11/02/24 04:02 99 18 114/76 97 11/02/24 03:01 99.9 F H 104 H 18 134/67 99 11/02/24 01:45 104.1 F H 124 H 16 136/98 99 Intake and Output 11/01/24 11/02/24 11/02/24 22:59 06:59 14:59 Other: Weight 68.039 kg 68.039 kg GENERAL DESCRIPTION: Middle-aged male lying in bed, no distress. No tachypnea or accessory muscle of respiration use. HEENT: Shows Pallor , no scleral icterus. Oral mucous membrane is dry. NECK: Trachea central, no thyromegaly. LUNGS: Unlabored breathing. Decreased breath sound at the left base HEART: S1, S2, regular rate and rhythm. No loud murmur ABDOMEN: Soft, no tenderness , EXTREMITIES: No edema of feet. SKIN: No rash, no masses palpable. NEUROLOGICAL: The patient is awake, alert, oriented x3, mood and affect normal. Results CBC & Chem 7: 11/02/24 02:18 11/02/24 02:18 Labs: Abnormal Lab Results - Last 24 Hours (Table) 11/02/24 11/02/24 11/02/24 Range/Units 02:18 02:18 02:55 WBC 23.8 H (3.8-10.6) k/uL Neutrophils # 21.6 H (1.3-7.7) k/uL Sodium 134 L (137-145) mmol/L Glucose 124 H (74-99) mg/dL C-Reactive Protein (<1.0) mg/dL Lipase 1029 H (23-300) U/L 11/02/24 Range/Units 10:32 WBC (3.8-10.6) k/uL Neutrophils # (1.3-7.7) k/uL Sodium (137-145) mmol/L Glucose (74-99) mg/dL C-Reactive Protein 4.9 H (<1.0) mg/dL Lipase (23-300) U/L Assessment and Plan (1) Penicillin allergy Current Visit: Yes Status: Acute Code(s): Z88.0 - ALLERGY STATUS TO PENICILLIN SNOMED Code(s): 67923140 (2) Pneumonia Current Visit: Yes Status: Acute Code(s): J18.9 - PNEUMONIA, UNSPECIFIED ORGANISM SNOMED Code(s): 431718787 (3) Sepsis Current Visit: Yes Status: Acute Code(s): A41.9 - SEPSIS, UNSPECIFIED ORGANISM SNOMED Code(s): 03455233 Plan: 1patient present to hospital with sepsis in this patient did have fever elevated white count meeting currently for SIRS source is left lower lobe pneumonia likely community-acquired patient did have a D-dimer of less than 0.17 2patient with a penicillin allergy that would limit the number of antibiotics safe to use 3leukocytosis likely due to the left lower lobe pneumonia 4blood and sputum culture have been obtained results will be followed 5Rocephin and Zithromax will provide adequate empiric coverage while waiting for the culture to finalize We will follow on clinical condition and cultures to further adjust medication if needed Thank you for this consultation we will follow the patient along with you Dictation was produced using [employer] dictation software. please excuse any grammatical, word or spelling errors. Time with Patient: Greater than 30
[2024-11-03 09:40] LABS: HCT 35.4 % (39.6-50.0); HGB 12.2 g/dL (13.0-17.0); MCHC 34.5 g/dL (32.0-37.0); MCV 90.1 FL (80.0-97.0); Mean Platelet Volume 10.6 FL (9.5-12.2); NRBC Per 100 WBC 0 X 10*3/uL (0.00-0.01); Platelet Count 240 X 10*3/uL (140-440); RBC 3.93 X 10*6/uL (4.40-5.60); RDW 13.2 % (11.5-14.5); WBC 6.38 X 10*3/uL (4.50-10.00)
[2024-11-03 09:41] LABS: Basophils # (A) 0.05 X 10*3/uL (0.00-0.10); Basophils % (A) 0.8 %; Eosinophils # (A) 0 X 10*3/uL (0.04-0.35); Eosinophils % (A) 0 %; Lymphocytes # (A) 1.51 X 10*3/uL (0.90-5.00); Lymphocytes % (A) 23.7 %; Monocytes # (A) 0.63 X 10*3/uL (0.20-1.00); Monocytes % (A) 9.9 %; Neutrophils # (A) 4.17 X 10*3/uL (1.80-7.70); Neutrophils % (A) 65.3 %
[2024-11-03 09:47] LABS: ALT 17 U/L (10-49); AST 11 U/L (14-35); Albumin 3.7 g/dL (3.8-4.9); Albumin/Globulin Ratio 1.76 Ratio (1.60-3.17); Alkaline Phosphatase 62 U/L (41-126); BUN/Creat Ratio 10.88 Ratio (12.00-20.00); Blood Urea Nitrogen 8.7 mg/dL (9.0-27.0); Calcium 8.7 mg/dL (8.7-10.3); Carbon Dioxide 24.7 mmol/L (21.6-31.8); Chloride 108 mmol/L (96-109); Globulin 2.1 g/dL (1.6-3.3); Glucose 96 mg/dL (70-110); Potassium 4.2 mmol/L (3.5-5.5); Sodium 140 mmol/L (135-145); Total Bilirubin 0.3 mg/dL (0.3-1.2); Total Protein 5.8 g/dL (6.2-8.2)
--- NOTE | 2024-11-03 14:25 | P.PN ---
Subjective Progress Note Date: 11/03/24 patient is a 34-year-old gentleman who came to the ER because of left-sided chest pain. Patient stated that he was all right yesterday when he started noticing left-sided chest pain which was sharp, nonradiating, associate with shortness of breath, no aggravating or relieving factors associated with this chest pain. Patient was complaining of cough for the last few days. Patient any fevers at home. There is no complaint of rigors or chills. Patient denies any nausea or vomiting. There was no clear orthopnea or PND. Because of this chest pain, patient came to the ER Initial lab work done in the ER showed WBC 23.8, hemoglobin 14, platelet 317, sodium 134, potassium 4.1, BUN 9, creatinine 0.77, glucose 124, lipase 1029 UA negative for infection Influenza A not detected Influenza B not detected RSV not detected COVID-19 not detected Chest x-ray done in the ER showed no acute findings CT abdominal pelvis done showed consolidation of left lower lobe indicative of pneumonia Patient admitted to internal medicine service 11/03. Patient seen examined. Breathing is improved. Still having cough REVIEW OF SYSTEMS: CONSTITUTIONAL: No fever, no malaise,. CARDIOVASCULAR: No chest pain, no palpitations, no syncope. PULMONARY: As mentioned above GASTROINTESTINAL: No diarrhea, no nausea, no vomiting, no abdominal pain. NEUROLOGICAL: No headaches, no weakness, PHYSICAL EXAMINATION: GENERAL: The patient is alert and oriented x3, not in any acute distress. Well developed, well nourished. HEENT: Pupils are round and equally reacting to light. EOMI. No scleral icterus. No conjunctival pallor. Normocephalic, atraumatic. No pharyngeal erythema. No thyromegaly. CARDIOVASCULAR: S1 and S2 present. No murmurs, rubs, or gallops. PULMONARY: Chest is clear to auscultation, no wheezing or crackles. ABDOMEN: Soft, nontender, nondistended, normoactive bowel sounds. No palpable organomegaly. MUSCULOSKELETAL: No joint swelling or deformity. EXTREMITIES: No cyanosis, clubbing, or pedal edema. NEUROLOGICAL: Gross neurological examination did not reveal any focal deficits. SKIN: No rashes. Assessment and plan Sepsis Bacterial pneumonia Left-sided chest pain GERD Monitor vital signs Monitor CBC Monitor CMP Follow-up on blood cultures and follow-up on sputum cultures Continue IV Rocephin and azithromycin ID following Labs and medication were reviewed.. Continue same treatment. Continue with symptomatic treatment. Resume home medication. Monitor labs and vitals. DVT and GI prophylaxis. Further recommendations as per clinical course of the patient Dictation was produced using [employer] dictation software. please excuse any grammatical, word or spelling errors. Objective - Vital Signs Vital signs: Vital Signs Temp 98.1 F 11/03/24 13:11 Pulse 55 L 11/03/24 13:11 Resp 19 11/03/24 13:11 BP 148/85 11/03/24 13:11 Pulse Ox 100 11/03/24 13:11 FiO2 Intake & Output 11/02/24 11/03/24 11/03/24 18:59 06:59 18:59 Intake Total 1080 1020 Balance 1080 1020 Weight 68.039 kg Intake: Oral 1080 1020 Other: # Voids 2 2 2 - Labs CBC & Chem 7: 11/03/24 04:47 11/03/24 04:47 Labs: Abnormal Lab Results - Last 24 Hours (Table) 11/03/24 11/03/24 Range/Units 04:47 04:47 RBC 3.93 L (4.40-5.60) X 10*6/uL Hgb 12.2 L (13.0-17.0) g/dL Hct 35.4 L (39.6-50.0) % Eosinophils # 0 L (0.04-0.35) X 10*3/uL BUN 8.7 L (9.0-27.0) mg/dL BUN/Creatinine Ratio 10.88 L (12.00-20.00) Ratio AST 11 L (14-35) U/L Total Protein 5.8 L (6.2-8.2) g/dL Albumin 3.7 L (3.8-4.9) g/dL Microbiology - Last 24 Hours (Table) 11/02/24 12:49 Gram Stain - Preliminary Sputum
--- NOTE | 2024-11-03 15:14 | P.PN ---
Subjective Progress Note Date: 11/03/24 Principal diagnosis: Reason for follow-up is pneumonia Patient is a 34-year-old male with no significant past medical history presenting to the hospital for evaluation of left-sided chest pain, patient be diagnosed with sepsis secondary left lower lobe pneumonia. On today's evaluation that is 11/03/2024, Patient did have resolution of his fever and is afebrile this morning patient is currently on room air and denies having any shortness of breath, the patient left-sided chest pain has improved denies any worsening cough no nausea vomiting abdominal pain or diarrhea feeling better. Patient white count normalized to 6.38, creatinine 0.8 sputum cultures currently pending Objective - Vital Signs Vital signs: Vital Signs Temp 98.4 F 11/03/24 07:49 Pulse 65 11/03/24 07:49 Resp 17 11/03/24 07:49 BP 125/73 11/03/24 07:49 Pulse Ox 100 11/03/24 07:49 FiO2 Intake & Output 11/02/24 11/03/24 11/03/24 18:59 06:59 18:59 Intake Total 1080 Balance 1080 Weight 68.039 kg Intake: Oral 1080 Other: # Voids 2 2 - Exam GENERAL DESCRIPTION: Middle-age male lying in bed in no distress RESPIRATORY SYSTEM: Unlabored breathing , decreased breath sounds at bases HEART: S1 S2 regular rate and rhythm , ABDOMEN: Soft , no tenderness EXTREMITIES: No edema feet - Labs CBC & Chem 7: 11/03/24 04:47 11/03/24 04:47 Labs: Abnormal Lab Results - Last 24 Hours (Table) 11/03/24 11/03/24 Range/Units 04:47 04:47 RBC 3.93 L (4.40-5.60) X 10*6/uL Hgb 12.2 L (13.0-17.0) g/dL Hct 35.4 L (39.6-50.0) % Eosinophils # 0 L (0.04-0.35) X 10*3/uL BUN 8.7 L (9.0-27.0) mg/dL BUN/Creatinine Ratio 10.88 L (12.00-20.00) Ratio AST 11 L (14-35) U/L Total Protein 5.8 L (6.2-8.2) g/dL Albumin 3.7 L (3.8-4.9) g/dL Microbiology - Last 24 Hours (Table) 11/02/24 12:49 Gram Stain - Preliminary Sputum Assessment and Plan (1) Penicillin allergy Current Visit: Yes Status: Acute Code(s): Z88.0 - ALLERGY STATUS TO PENICILLIN SNOMED Code(s): 14792377 (2) Pneumonia Current Visit: Yes Status: Acute Code(s): J18.9 - PNEUMONIA, UNSPECIFIED ORGANISM SNOMED Code(s): 952848544 (3) Sepsis Current Visit: Yes Status: Acute Code(s): A41.9 - SEPSIS, UNSPECIFIED ORGANISM SNOMED Code(s): 83536492 Plan: 1patient present to hospital with sepsis in this patient did have fever elevated white count meeting currently for SIRS source is left lower lobe pneumonia likely community-acquired patient did have a D-dimer of less than 0.17 2patient with a penicillin allergy that would limit the number of antibiotics safe to use 3leukocytosis likely due to the left lower lobe pneumonia and has normalized 4blood and sputum culture have been obtained which are currently pending 5patient to continue with Rocephin and Zithromax while waiting for the culture to finalize Discussed with admitting physician Dictation was produced using [employer] dictation software. please excuse any grammatical, word or spelling errors. Time with Patient: Less than 30
[2024-11-04 07:47] VITALS: BP 110/62; PULSE 58; RESP 16; TEMP 97.7
[2024-11-04] MEDS: BENZONATATE 100 MG CAP PO PRN (08:32)
--- NOTE | 2024-11-05 15:36 | P.PN ---
Subjective Progress Note Date: 11/04/24 Principal diagnosis: Reason for follow-up is pneumonia Patient is a 34-year-old male with no significant past medical history presenting to the hospital for evaluation of left-sided chest pain, patient be diagnosed with sepsis secondary left lower lobe pneumonia. On today's evaluation that is 11/04/2024, patient has been afebrile, patient is breathing comfortably and is currently on room air, patient cough is decreased in intensity and no chest pain, patient denies nausea vomiting or diarrhea and no abdominal pain. Patient did not have lab draw today blood and sputum cultures so far negative Objective - Vital Signs Vital signs: Vital Signs Temp 97.7 F 11/04/24 07:47 Pulse 58 L 11/04/24 07:47 Resp 16 11/04/24 07:47 BP 110/62 11/04/24 07:47 Pulse Ox 100 11/04/24 07:47 FiO2 Intake & Output 11/03/24 11/04/24 11/04/24 18:59 06:59 18:59 Intake Total 1020 222 Balance 1020 222 Intake: Oral 1020 222 Other: # Voids 2 1 - Exam GENERAL DESCRIPTION: Middle-age male lying in bed in no distress RESPIRATORY SYSTEM: Unlabored breathing , decreased breath sounds at bases HEART: S1 S2 regular rate and rhythm , ABDOMEN: Soft , no tenderness EXTREMITIES: No edema feet - Labs CBC & Chem 7: 11/03/24 04:47 11/03/24 04:47 Labs: Microbiology - Last 24 Hours (Table) 11/02/24 12:49 Gram Stain - Preliminary Sputum Assessment and Plan (1) Penicillin allergy Status: Acute Code(s): Z88.0 - ALLERGY STATUS TO PENICILLIN SNOMED Code(s): 00348739 (2) Pneumonia Status: Acute Code(s): J18.9 - PNEUMONIA, UNSPECIFIED ORGANISM SNOMED Code(s): 501827796 (3) Sepsis Status: Acute Code(s): A41.9 - SEPSIS, UNSPECIFIED ORGANISM SNOMED Code(s): 42337176 Plan: 1patient present to hospital with sepsis in this patient did have fever elevated white count meeting currently for SIRS source is left lower lobe pneumonia likely community-acquired patient did have a D-dimer of less than 0.17 2patient with a penicillin allergy that would limit the number of antibiotics safe to use 3leukocytosis likely due to the left lower lobe pneumonia and has normalized 4blood and sputum culture have been obtained which are so far negative 5patient has shown clinical improvement on Rocephin and Zithromax and wants to go home he will finish therapy with oral Ceftin Dictation was produced using [employer] dictation software. please excuse any grammatical, word or spelling errors. Time with Patient: Less than 30
--- NOTE | 2024-11-06 21:16 | P.DS ---
Providers Date of admission: 11/02/24 03:41 Attending physician: Rohit Moscoso Consults: 11/02/24 10:24 Consult Physician Routine Consulting Provider: Joey Patricia Consult Reason/Comments: Sepsis pneumonia Do you want consulting provider notified?: Yes Primary care physician: Robbie Jensen [facility] Course: Final Diagnosis Sepsis Bacterial pneumonia community acquired due to gram negative organism. Left-sided chest pain from above GERD Discharge Disposition Patient is stable for discharge home. He has clinically improved. Will continue antibiotics for 3 more days. Follow up with PCP on discharge. Hospital Course patient is a 34-year-old gentleman who came to the ER because of left-sided chest pain. Patient came in for complaints of left-sided chest pain which was sharp, nonradiating, associate with shortness of breath, no aggravating or relieving factors associated with this chest pain. Patient was complaining of cough for the last few days. Patient any fevers at home. There is no complaint of rigors or chills. Patient denies any nausea or vomiting. There was no clear orthopnea or PND. Because of this chest pain, patient came to the ER. Initial lab work done in the ER showed WBC 23.8, hemoglobin 14, platelet 317, sodium 134, potassium 4.1, BUN 9, creatinine 0.77, glucose 124, lipase 1029 UA negative for infection. Viral panel negative for covid, influenza or RSV. Chest x-ray done in the ER showed no acute findings. CT abdominal pelvis done showed consolidation of left lower lobe indicative of pneumonia. Patient admitted to internal medicine service. Started on IV ceftriaxone had clinical improvement. He is on room air. White blood cell count has gone from 23.8 down to 6.38. Electrolytes and renal function are WNL. Lipase 1029. Procalcitonin level 0.15. Sputum culture negative. Cleared for discharge home Please see medication reconciliation for a list of current medications. Thank you for allowing us to participate in the care of this patient. The impression and plan of care has been dictated by Sihra Alston Nurse Practitioner as directed. Dr. Anuja MD I have performed a history and physical examination and medical decision making of this patient, discussed the same with the dictator, and agree with the dictators assessment and plan as written, documented as a scribe. Based on total visit time, I have performed more than 50% of this visit. Patient Condition at Discharge: Stable Plan - Discharge Summary Discharge Rx Participant: No New Discharge Prescriptions: New Benzonatate [Tessalon Perles] 200 mg PO TID PRN #12 cap PRN Reason: Cough cefuroxime axetiL [Ceftin] 500 mg PO BID 3 Days #6 tab Continue Omeprazole 20 mg PO DAILY Discharge Medication List Omeprazole 20 mg PO DAILY 11/02/24 [History] Benzonatate [Tessalon Perles] 200 mg PO TID PRN #12 cap 11/04/24 [Rx] cefuroxime axetiL [Ceftin] 500 mg PO BID 3 Days #6 tab 11/04/24 [Rx] Follow up Appointment(s)/Referral(s): Robbie Jensen [Primary Care Provider] - 1-2 days (please call the office to sc hedule a follow up appointment) Joey Patricia MD [STAFF PHYSICIAN] - 1 Week (please call the office to schedule a follow up appointment) Ambulatory/Diagnostic Orders: Complete Blood Count w/diff [LAB.AMB] Time Frame: 3 Days, Location: None Selected Discharge Disposition: HOME SELF-CARE
== END 2024-11-04 12:24 | disposition home or self-care (01) ==
LOC: EC 01:43 → 4SSUR 03:41 → 5NMEDONC 05:49
PROVIDERS: ADMIT Hospitalist; ATTEND Hospitalist
DX: A41.9 Sepsis, unspecified organism (principal); J15.9 Unspecified bacterial pneumonia; K21.9 Gastro-esophageal reflux disease without esophagitis; Z87.891 Personal history of nicotine dependence; Z79.899 Other long term (current) drug therapy; Z88.0 Allergy status to penicillin
CPT/HCPCS: 96376; 96366 ×4; 96375; 96361; 96365 ×2; 99285; 36415; 85379; 83880; 80053 ×2; 87449; 85652; 83605; 83690; 85025 ×2; 86140; 81003; 87040; 87070; 87205; 84145; 87636; 71046 ×2; 74177; G0378 ×4; J0456; J0696 ×3; J1885 ×2